=== PATIENT | male | born 1940 | race African-American/Black ===

== ENCOUNTER 2022-06-06 13:40 | Inpatient (IN) | payer MEDICARE, MEDICAID ==
[~2022-06-06] VITALS: Ht 167.6 cm; Wt 122.5 kg
[~2022-06-06 13:40] MED LIST: BLOOD THINNER; CHOLESTEROL MEDS; GABAPENTIN; HTN MEDS; PAIN MEDS
[2022-06-06] MEDS ORDERED: ONDANSETRON HCL 4MG/2ML INJ IV STA (14:33)
[2022-06-06] MEDS ORDERED: MORPHINE SULFATE 4 MG/ML CPJ (NOT FOR IM USE) IV STA (14:33)
[2022-06-06] MEDS ORDERED: SODIUM CHLORIDE 0.9% 1,000 ML IV ONE (14:45)
[2022-06-06 15:24] LABS: BASOPHILS % 0.2 % (0.0-2.0); EOSINOPHILS % 1.3 % (0.0-5.0); HEMATOCRIT. 38.3 % (42.0-52.0); HEMOGLOBIN. 12.6 g/dL (14.0-18.0); LYMPHOCYTES % 15.8 % (20.0-50.0); MEAN CORPUSCULAR HEMOGLOBIN 30.4 pg (28.0-32.0); MEAN CORPUSCULAR VOLUME 92.5 fL (80.0-94.0); MEAN PLATELET VOLUME 9.2 fl (7.4-10.4); MONOCYTES % 4.4 % (2.0-8.0); NEUTROPHILS % 78.3 % (40.0-76.0); PLATELET 199 x1000/uL (130-400); RED BLOOD CELL COUNT 4.14 mill/uL (4.7-6.1); RED CELL DISTRIBUTION WIDTH 15.9 % (11.6-14.6)
[2022-06-06 15:32] LABS: CHLORIDE 108 mEq/L (98-107)
[2022-06-06 15:34] LABS: PARTIAL THROMBOPLASTIN TIME 27.1 sec (23.4-31.0); PROTHROMBIN TIME 10.7 sec (9.6-11.0)
[2022-06-06] MEDS ORDERED: AMLODIPINE 10MG TABLET PO ONE (16:45)
[2022-06-06] MEDS ORDERED: FUROSEMIDE 40MG/4ML VIAL IV ONE (17:00)
[2022-06-06] MEDS ORDERED: CEFTRIAXONE 1 G PREMIX 50 ML IV ONE (17:00)
[2022-06-06] MEDS ORDERED: AZITHROMYCIN 500MG/250ML 250 ML IV ONE (17:00)
[2022-06-06 17:14] LABS: CLARITY URINE CLEAR (CLEAR); COLOR URINE YELLOW (YELLOW); KETONES URINE NEGATIVE (NEGATIVE); LEUKOCYTE ESTERASE URINE TRACE (NEGATIVE); NITRITE URINE POSITIVE (NEGATIVE); OCCULT BLOOD URINE NEGATIVE (NEGATIVE); PH URINE 6.5 (4.5-8.0); PROTEIN URINE 1+ (NEGATIVE); SPECIFIC GRAVITY URINE 1.014 (1.005-1.030); UROBILINOGEN URINE 0.2 E.U./dL (0.2-1.0)
[2022-06-06] MEDS ORDERED: DOCUSATE SODIUM 100MG CAPSULE PO PRN (20:15)
[2022-06-06] MEDS ORDERED: GUAIFENESIN 200MG/10ML SUGAR FREE UDC PO PRN (20:15)
[2022-06-06] MEDS ORDERED: MAGNESIUM/ALUMINUM HYDROXIDE/SIMETHICONE 30ML UDC PO PRN (20:15)
[2022-06-06] MEDS ORDERED: IPRATROPIUM/ALBUTEROL 0.5-3(2.5)MG/3ML NEB NEB PRN (20:15)
[2022-06-06] MEDS ORDERED: ACETAMINOPHEN 325MG TABLET PO PRN ×2 (20:15)
[2022-06-06] MEDS ORDERED: NITROGLYCERIN 0.4MG TABLET SL SL PRN (20:15)
[2022-06-06] MEDS ORDERED: ONDANSETRON HCL 4MG/2ML INJ IV PRN (20:15)
[2022-06-06] MEDS ORDERED: TRAMADOL 50MG TABLET PO PRN (20:15)
[2022-06-06] MEDS ORDERED: KETOROLAC 15MG/ML VIAL IV PRN (20:15)
[2022-06-06] MEDS ORDERED: LEVOFLOXACIN 500MG PREMIX 100 ML IV SCH (20:15)
[2022-06-06 20:30] VITALS: BP 168/84
[2022-06-06] MEDS ORDERED: NALOXONE HCL 0.4MG/ML VIAL IV PRN (20:45)
[2022-06-06] MEDS ORDERED: ZOLPIDEM TARTRATE 5MG TABLET PO PRN (21:00)
[2022-06-06] MEDS: FUROSEMIDE 40MG/4ML VIAL IVP SCH (22:27)
[2022-06-06] MEDS: ENOXAPARIN 40MG/0.4ML SYR SUBCUT SCH (22:28)
[2022-06-06 22:31] LABS: T4 FREE 1.42 ng/dL (0.76-1.46)
[2022-06-06] MEDS: ASCORBIC ACID 500 MG TABLET PO SCH (22:41)
[2022-06-06] MEDS: LISINOPRIL 20MG TABLET PO SCH (22:41)
[2022-06-06] MEDS: SPIRONOLACTONE 25MG TABLET PO SCH (22:41)
[2022-06-06 22:45] LABS: FOLIC ACID (FOLATE) SERUM 13.5 ng/mL (>5.38)
[2022-06-06] MEDS: MORPHINE SULFATE 2 MG/ML CPJ (NOT FOR IM USE) IV PRN (23:11)
[2022-06-07] VITALS: BP 108/70
[2022-06-07] MEDS ORDERED: HYDR-4009 PO (03:57)
[2022-06-07 04:00] VITALS: BP 137/54
[2022-06-07] MEDS ORDERED: *PATIENT'S OWN MEDICATION STORAGE XX SCH (05:00)
[2022-06-07 05:35] LABS: CHLORIDE 105 mEq/L (98-107)
[2022-06-07 05:43] LABS: PHOSPHORUS 2.2 mg/dL (2.5-4.9)
[2022-06-07] MEDS: MORPHINE SULFATE 2 MG/ML CPJ (NOT FOR IM USE) IV PRN (05:55)
[2022-06-07 06:03] LABS: HEMATOCRIT. 32.8 % (42.0-52.0); HEMOGLOBIN. 10.8 g/dL (14.0-18.0); MEAN CORPUSCULAR HEMOGLOBIN 30.1 pg (28.0-32.0); MEAN CORPUSCULAR VOLUME 91.8 fL (80.0-94.0); MEAN PLATELET VOLUME 9.5 fl (7.4-10.4); PLATELET 167 x1000/uL (130-400); RED BLOOD CELL COUNT 3.57 mill/uL (4.7-6.1); RED CELL DISTRIBUTION WIDTH 15.6 % (11.6-14.6)
[2022-06-07 08:00] VITALS: BP 136/79
[2022-06-07] MEDS: FERROUS SULFATE 300MG/5ML UDC PO SCH ×3 (09:48→17:55)
[2022-06-07] MEDS: SPIRONOLACTONE 25MG TABLET PO SCH ×2 (09:49→21:10)
[2022-06-07] MEDS: ZINC SULFATE 220 MG ( 50 ) CAPSULE PO SCH (09:49)
[2022-06-07] MEDS: CHOLECALCIFEROL (D3) 1000 UNIT TABLET PO SCH (09:49)
[2022-06-07] MEDS: ASCORBIC ACID 500 MG TABLET PO SCH ×2 (09:49→21:10)
[2022-06-07] MEDS: FUROSEMIDE 40MG/4ML VIAL IVP SCH ×2 (09:50→21:09)
[2022-06-07] MEDS: LISINOPRIL 20MG TABLET PO SCH ×2 (09:50→21:10)
[2022-06-07 11:47] LABS: PLATELET ESTIMATE NORMAL
[2022-06-07 12:00] VITALS: BP 130/70
[2022-06-07 16:00] VITALS: BP 135/66
[2022-06-07 20:00] VITALS: BP 153/85
[2022-06-07] MEDS: ENOXAPARIN 40MG/0.4ML SYR SUBCUT SCH (21:09)
[2022-06-08] VITALS: BP 157/83
[2022-06-08 04:00] VITALS: BP 140/108
[2022-06-08 05:37] LABS: BASOPHILS % 0.2 % (0.0-2.0); EOSINOPHILS % 2.2 % (0.0-5.0); HEMATOCRIT. 35.6 % (42.0-52.0); HEMOGLOBIN. 11.8 g/dL (14.0-18.0); LYMPHOCYTES % 10.3 % (20.0-50.0); MEAN CORPUSCULAR HEMOGLOBIN 30.5 pg (28.0-32.0); MEAN CORPUSCULAR VOLUME 92.3 fL (80.0-94.0); MEAN PLATELET VOLUME 9.1 fl (7.4-10.4); MONOCYTES % 6.2 % (2.0-8.0); NEUTROPHILS % 81.1 % (40.0-76.0); PLATELET 159 x1000/uL (130-400); RED BLOOD CELL COUNT 3.85 mill/uL (4.7-6.1)
[2022-06-08] MEDS ORDERED: POLYMYXIN B SULFATE 500000 UNITS/VIAL ONE (07:32)
[2022-06-08] MEDS ORDERED: BUPIVACAINE HCL 0.5% (5MG/ML) 50ML ONE (07:33)
[2022-06-08] MEDS ORDERED: VANCOMYCIN HCL 1 GM/VIAL ONE (07:33)
[2022-06-08] MEDS ORDERED: MORPHINE SULFATE/PF 1MG/ML 10ML AMP ONE (07:36)
[2022-06-08] MEDS ORDERED: ROPIVACAINE HCL 10MG/ML 20 ML VIAL EPI ONE (07:36)
[2022-06-08] MEDS ORDERED: KETOROLAC 30MG/ML VIAL ONE (07:36)
[2022-06-08] MEDS ORDERED: EPINEPHRINE 1:1000 1 MG/ML AMP ONE (07:37)
[2022-06-08] MEDS: FERROUS SULFATE 300MG/5ML UDC PO SCH ×3 (07:50→16:58)
[2022-06-08] MEDS ORDERED: TRANEXAMIC ACID 1,000 MG in SODIUM CHLORIDE 0.9% 100 ML IV NR ×2 (08:00→10:00)
[2022-06-08] MEDS ORDERED: SKIN ADHESIVE 0.7 GM EA TOP ONE (08:54)
[2022-06-08] MEDS ORDERED: HYDROMORPHONE HCL/PF 2MG/ML CPJ ONE (08:56)
[2022-06-08] MEDS ORDERED: DEXAMETHASONE 4MG/ML 1ML VIAL ONE (08:57)
[2022-06-08] MEDS ORDERED: CEFAZOLIN SODIUM 1000MG/VIAL ONE (08:57)
[2022-06-08] MEDS ORDERED: GLYCOPYRROLATE 0.2 MG/ML 2ML VIAL ONE (08:57)
[2022-06-08] MEDS: LISINOPRIL 20MG TABLET PO SCH ×2 (09:00→20:46)
[2022-06-08] MEDS: ZINC SULFATE 220 MG ( 50 ) CAPSULE PO SCH (09:00)
[2022-06-08] MEDS: CHOLECALCIFEROL (D3) 1000 UNIT TABLET PO SCH (09:00)
[2022-06-08] MEDS: ASCORBIC ACID 500 MG TABLET PO SCH ×2 (09:00→20:45)
[2022-06-08] MEDS: SPIRONOLACTONE 25MG TABLET PO SCH ×2 (09:00→20:46)
[2022-06-08] MEDS: FUROSEMIDE 40MG/4ML VIAL IVP SCH ×2 (09:00→20:45)
[2022-06-08] MEDS ORDERED: METOPROLOL TARTRATE 5MG/5ML VIAL IV PRN (10:00)
[2022-06-08] MEDS ORDERED: LEVOFLOXACIN 500MG PREMIX 100 ML IV SCH (11:00)
[2022-06-08 12:00] VITALS: BP 162/83
[2022-06-08 16:00] VITALS: BP 185/91
[2022-06-08] MEDS: CEFAZOLIN 2,000 MG in DEXT 5% WATER 100 ML IV SCH ×2 (16:59→22:06)
[2022-06-08] MEDS: CLONIDINE 0.1MG TABLET PO PRN (16:59)
[2022-06-08 20:00] VITALS: BP 139/76
[2022-06-08] MEDS: ENOXAPARIN 40MG/0.4ML SYR SUBCUT SCH (20:45)
[2022-06-09] VITALS: BP 146/81
[2022-06-09 04:00] VITALS: BP 131/67
[2022-06-09] MEDS: CEFAZOLIN 2,000 MG in DEXT 5% WATER 100 ML IV SCH ×3 (05:23→21:06)
[2022-06-09 08:00] VITALS: BP 140/71
[2022-06-09] MEDS: ZINC SULFATE 220 MG ( 50 ) CAPSULE PO SCH (09:37)
[2022-06-09] MEDS: FERROUS SULFATE 300MG/5ML UDC PO SCH ×3 (09:37→19:04)
[2022-06-09] MEDS: ASCORBIC ACID 500 MG TABLET PO SCH ×2 (09:37→21:00)
[2022-06-09] MEDS: SPIRONOLACTONE 25MG TABLET PO SCH ×2 (09:37→21:00)
[2022-06-09] MEDS: LISINOPRIL 20MG TABLET PO SCH ×2 (09:37→21:00)
[2022-06-09] MEDS: CHOLECALCIFEROL (D3) 1000 UNIT TABLET PO SCH (09:37)
[2022-06-09 12:00] VITALS: BP 144/70
[2022-06-09 16:00] VITALS: BP 158/72
[2022-06-09 20:00] VITALS: BP 154/87
[2022-06-09] MEDS: ENOXAPARIN 40MG/0.4ML SYR SUBCUT SCH (21:01)
[2022-06-10] VITALS (7 sets, daily range): BP systolic 142–179; BP diastolic 75–100
[2022-06-10] MEDS: MORPHINE SULFATE 2 MG/ML CPJ (NOT FOR IM USE) IV PRN ×2 (05:56→10:45)
[2022-06-10] MEDS: CEFAZOLIN 2,000 MG in DEXT 5% WATER 100 ML IV SCH (06:47)
[2022-06-10] MEDS: CHOLECALCIFEROL (D3) 1000 UNIT TABLET PO SCH (10:36)
[2022-06-10] MEDS: FERROUS SULFATE 300MG/5ML UDC PO SCH ×4 (10:36→17:24)
[2022-06-10] MEDS: ZINC SULFATE 220 MG ( 50 ) CAPSULE PO SCH (10:36)
[2022-06-10] MEDS: ASCORBIC ACID 500 MG TABLET PO SCH ×2 (10:37→20:47)
[2022-06-10] MEDS: LISINOPRIL 20MG TABLET PO SCH ×2 (10:43→20:47)
[2022-06-10] MEDS: SPIRONOLACTONE 25MG TABLET PO SCH ×2 (10:43→20:47)
[2022-06-10] MEDS ORDERED: LEVOFLOXACIN 500MG TABLET PO SCH (11:00)
[2022-06-10] MEDS ORDERED: HYDROCODONE/ACETAMINOPHEN 10/325MG TABLET PO PRN (11:00)
[2022-06-10] MEDS: CLONIDINE 0.1MG TABLET PO PRN (11:31)
[2022-06-10] MEDS: AMLODIPINE 10MG TABLET PO SCH (17:23)
[2022-06-10] MEDS: ENOXAPARIN 40MG/0.4ML SYR SUBCUT SCH (20:48)
[2022-06-11] VITALS: BP 145/77
[2022-06-11 04:00] VITALS: BP 136/61
[2022-06-11] MEDS: HYDROCODONE/ACETAMINOPHEN 10/325MG TABLET PO PRN ×2 (06:28→14:09)
[2022-06-11 08:00] VITALS: BP 136/84
[2022-06-11] MEDS: FERROUS SULFATE 300MG/5ML UDC PO SCH ×2 (08:29→14:05)
[2022-06-11] MEDS: AMLODIPINE 10MG TABLET PO SCH (08:30)
[2022-06-11] MEDS: ZINC SULFATE 220 MG ( 50 ) CAPSULE PO SCH (08:30)
[2022-06-11] MEDS: SPIRONOLACTONE 25MG TABLET PO SCH (08:30)
[2022-06-11] MEDS: ASCORBIC ACID 500 MG TABLET PO SCH (08:30)
[2022-06-11] MEDS: LISINOPRIL 20MG TABLET PO SCH (08:30)
[2022-06-11] MEDS: CHOLECALCIFEROL (D3) 1000 UNIT TABLET PO SCH (08:50)
[2022-06-11 12:00] VITALS: BP 131/84
[2022-06-11 16:00] VITALS: BP 131/86
[2022-06-11 16:18] VITALS: BP 131/86
== END 2022-06-11 16:50 | DRG 521 ==
LOC: ER 14:13 → 6WST 17:36 → ENRESERV 17:44 → SUPCPDRO 20:04 → UNDODISIN 06-09 18:24 → 6EST 06-09 22:40
PROVIDERS: ADMIT Internal Medicine; ATTEND Internal Medicine
PROC: 0SRR0JZ Replacement of Right Hip Joint, Femoral Surface with Synthetic Substitute, Open Approach (ICD-10-PCS; principal; 2022-06-08)
DX: S72.001A Fracture of unspecified part of neck of right femur, initial encounter for closed fracture (principal); J96.00 Acute respiratory failure, unspecified whether with hypoxia or hypercapnia; N17.0 Acute kidney failure with tubular necrosis; I16.1 Hypertensive emergency; I13.0 Hypertensive heart and chronic kidney disease with heart failure and stage 1 through stage 4 chronic kidney disease, or unspecified chronic kidney disease; D62 Acute posthemorrhagic anemia; I69.954 Hemiplegia and hemiparesis following unspecified cerebrovascular disease affecting left non-dominant side; N18.9 Chronic kidney disease, unspecified; D63.8 Anemia in other chronic diseases classified elsewhere; Z20.822 Contact with and (suspected) exposure to COVID-19; I25.119 Atherosclerotic heart disease of native coronary artery with unspecified angina pectoris; K21.9 Gastro-esophageal reflux disease without esophagitis; I50.9 Heart failure, unspecified; E11.22 Type 2 diabetes mellitus with diabetic chronic kidney disease; F03.90 Unspecified dementia, unspecified severity, without behavioral disturbance, psychotic disturbance, mood disturbance, and anxiety; E78.5 Hyperlipidemia, unspecified; Z79.82 Long term (current) use of aspirin; Z87.891 Personal history of nicotine dependence; Z79.899 Other long term (current) drug therapy; W01.0XXA Fall on same level from slipping, tripping and stumbling without subsequent striking against object, initial encounter; Y93.89 Activity, other specified; Y92.89 Other specified places as the place of occurrence of the external cause; Y99.8 Other external cause status
CPT/HCPCS: 36415; 71045; 73502; 73552; 80048; 80053; 80061; 81003; 82607; 82746; 83036; 83540; 83550; 83605; 83735; 83880; 84100; 84439; 84443; 84484; 85025; 86850; 86900; 86920; 87426; 88305; 88311; 93005; 93306; 93970; 97110; 97161; 97162; 97165; 97166; 97530; 97535; 99285; C1776; C9803; J0456; J0690; J0696; J1100; J1170; J1650; J1885; J1940; J1956; J2270; J2274; J2405; J2795; J3370; J3490; J7030; J7050; J7060

== ENCOUNTER 2022-06-11 17:00 | Inpatient (IN) | payer MEDICARE, MEDICAID ==
[~2022-06-11] VITALS: Ht 175.3 cm; Wt 63.0 kg
[~2022-06-11 17:00] MED LIST changes: +HYDR-4009 PO; -PAIN MEDS
[2022-06-11 17:45] VITALS: BP 165/89
[2022-06-11 18:03] VITALS: BP 165/89
[2022-06-11] MEDS ORDERED: ACETAMINOPHEN 325MG TABLET PO PRN (18:30)
[2022-06-11] MEDS ORDERED: ONDANSETRON HCL 4MG/2ML INJ IV PRN (18:30)
[2022-06-11] MEDS ORDERED: MAGNESIUM/ALUMINUM HYDROXIDE/SIMETHICONE 30ML UDC PO PRN (18:30)
[2022-06-11] MEDS ORDERED: NITROGLYCERIN 0.4MG TABLET SL SL PRN (18:30)
[2022-06-11] MEDS ORDERED: IPRATROPIUM/ALBUTEROL 0.5-3(2.5)MG/3ML NEB HHN PRN (18:30)
[2022-06-11] MEDS ORDERED: NALOXONE HCL 0.4 MG/ML 1ML VIAL IV PRN (18:30)
[2022-06-11] MEDS ORDERED: GUAIFENESIN 200MG/10ML SUGAR FREE UDC PO PRN (18:30)
[2022-06-11] MEDS ORDERED: CLONIDINE 0.1MG TABLET PO PRN (18:30)
[2022-06-11 20:00] VITALS: BP 134/79
[2022-06-11] MEDS ORDERED: ZOLPIDEM TARTRATE 5MG TABLET PO PRN (21:00)
[2022-06-11] MEDS: SPIRONOLACTONE 25MG TABLET PO SCH (21:45)
[2022-06-11] MEDS: ASCORBIC ACID 500 MG TABLET PO SCH (21:45)
[2022-06-11] MEDS: LISINOPRIL 20MG TABLET PO SCH (21:46)
[2022-06-11] MEDS: FUROSEMIDE 40MG/4ML VIAL IVP SCH (21:46)
[2022-06-11] MEDS: HYDROCODONE/ACETAMINOPHEN 10/325MG TABLET PO PRN (23:50)
[2022-06-12] VITALS: BP 137/69
[2022-06-12 04:00] VITALS: BP 142/51
[2022-06-12 06:42] LABS: BASOPHILS % 0.2 % (0.0-2.0); EOSINOPHILS % 1.8 % (0.0-5.0); HEMATOCRIT. 33.2 % (42.0-52.0); HEMOGLOBIN. 11.1 g/dL (14.0-18.0); LYMPHOCYTES % 14.8 % (20.0-50.0); MEAN CORPUSCULAR HEMOGLOBIN 30.8 pg (28.0-32.0); MEAN CORPUSCULAR VOLUME 91.6 fL (80.0-94.0); MEAN PLATELET VOLUME 9.1 fl (7.4-10.4); MONOCYTES % 13.5 % (2.0-8.0); NEUTROPHILS % 69.7 % (40.0-76.0); PLATELET 180 x1000/uL (130-400); RED BLOOD CELL COUNT 3.62 mill/uL (4.7-6.1); RED CELL DISTRIBUTION WIDTH 15.5 % (11.6-14.6)
[2022-06-12 06:59] LABS: CHLORIDE 100 mEq/L (98-107)
[2022-06-12 08:00] VITALS: BP 123/73
[2022-06-12] MEDS: SPIRONOLACTONE 25MG TABLET PO SCH ×2 (09:00→21:00)
[2022-06-12] MEDS: ENOXAPARIN 40MG/0.4ML SYR SUBCUT SCH (09:19)
[2022-06-12] MEDS: CHOLECALCIFEROL (D3) 1000 UNIT TABLET PO SCH (09:20)
[2022-06-12] MEDS: ZINC SULFATE 220 MG ( 50 ) CAPSULE PO SCH (09:20)
[2022-06-12] MEDS: FUROSEMIDE 40MG/4ML VIAL IVP SCH ×2 (09:20→20:58)
[2022-06-12] MEDS: ASCORBIC ACID 500 MG TABLET PO SCH ×2 (09:20→20:58)
[2022-06-12] MEDS: FERROUS SULFATE 300MG/5ML UDC PO SCH ×3 (09:21→17:12)
[2022-06-12] MEDS: AMLODIPINE 10MG TABLET PO SCH (09:23)
[2022-06-12] MEDS: LISINOPRIL 20MG TABLET PO SCH ×2 (09:45→20:59)
[2022-06-12] MEDS ORDERED: PANTOPRAZOLE 40MG DR TABLET PO SCH (10:30)
[2022-06-12] MEDS ORDERED: LEVOFLOXACIN 500MG TABLET PO SCH (11:00)
[2022-06-12] MEDS: HYDROCODONE/ACETAMINOPHEN 10/325MG TABLET PO PRN (13:46)
[2022-06-12 20:00] VITALS: BP 117/79
[2022-06-12] MEDS: FAMOTIDINE 20MG TABLET PO SCH (20:58)
[2022-06-13 03:25] VITALS: BP 106/57
[2022-06-13 06:13] LABS: BASOPHILS % 0.3 % (0.0-2.0); EOSINOPHILS % 3.1 % (0.0-5.0); HEMATOCRIT. 32.3 % (42.0-52.0); HEMOGLOBIN. 10.8 g/dL (14.0-18.0); LYMPHOCYTES % 17.7 % (20.0-50.0); MEAN CORPUSCULAR HEMOGLOBIN 30.8 pg (28.0-32.0); MEAN CORPUSCULAR VOLUME 92.2 fL (80.0-94.0); MEAN PLATELET VOLUME 8.5 fl (7.4-10.4); MONOCYTES % 11.7 % (2.0-8.0); NEUTROPHILS % 67.2 % (40.0-76.0); PLATELET 188 x1000/uL (130-400); RED BLOOD CELL COUNT 3.51 mill/uL (4.7-6.1); RED CELL DISTRIBUTION WIDTH 15.5 % (11.6-14.6)
[2022-06-13 07:45] VITALS: BP 119/70
[2022-06-13] MEDS: AMLODIPINE 10MG TABLET PO SCH (09:00)
[2022-06-13] MEDS: FERROUS SULFATE 300MG/5ML UDC PO SCH ×3 (09:01→17:09)
[2022-06-13] MEDS: ZINC SULFATE 220 MG ( 50 ) CAPSULE PO SCH (09:02)
[2022-06-13] MEDS: CHOLECALCIFEROL (D3) 1000 UNIT TABLET PO SCH (09:02)
[2022-06-13] MEDS: ASCORBIC ACID 500 MG TABLET PO SCH ×2 (09:03→20:49)
[2022-06-13] MEDS: LISINOPRIL 20MG TABLET PO SCH ×2 (09:03→20:49)
[2022-06-13] MEDS: ENOXAPARIN 40MG/0.4ML SYR SUBCUT SCH (09:08)
[2022-06-13] MEDS: TRAMADOL 50MG TABLET PO PRN (09:29)
[2022-06-13] MEDS: DOCUSATE SODIUM 100MG CAPSULE PO PRN (17:09)
[2022-06-13 20:00] VITALS: BP 106/52
[2022-06-13] MEDS: LACTULOSE 20G/30ML UDC PO SCH (20:49)
[2022-06-13] MEDS: FAMOTIDINE 20MG TABLET PO SCH (20:49)
[2022-06-14] MEDS: LACTULOSE 20G/30ML UDC PO SCH ×5 (00:19→15:47)
[2022-06-14] MEDS ORDERED: NA PHOS,M-B/NA PHOS,DI-BA ENEMA 118ML PR PRN (03:15)
[2022-06-14 07:13] LABS: BASOPHILS % 0.4 % (0.0-2.0); EOSINOPHILS % 3.8 % (0.0-5.0); HEMOGLOBIN. 11.1 g/dL (14.0-18.0); LYMPHOCYTES % 18.3 % (20.0-50.0); MEAN CORPUSCULAR HEMOGLOBIN 30.9 pg (28.0-32.0); MEAN CORPUSCULAR VOLUME 92.1 fL (80.0-94.0); MEAN PLATELET VOLUME 8.2 fl (7.4-10.4); MONOCYTES % 13.9 % (2.0-8.0); NEUTROPHILS % 63.6 % (40.0-76.0); PLATELET 232 x1000/uL (130-400); RED BLOOD CELL COUNT 3.58 mill/uL (4.7-6.1)
[2022-06-14 08:00] VITALS: BP 114/55
[2022-06-14] MEDS: FERROUS SULFATE 300MG/5ML UDC PO SCH ×3 (10:02→17:58)
[2022-06-14] MEDS: ASCORBIC ACID 500 MG TABLET PO SCH ×2 (10:03→21:18)
[2022-06-14] MEDS: AMLODIPINE 10MG TABLET PO SCH (10:03)
[2022-06-14] MEDS: ZINC SULFATE 220 MG ( 50 ) CAPSULE PO SCH (10:03)
[2022-06-14] MEDS: CHOLECALCIFEROL (D3) 1000 UNIT TABLET PO SCH (10:03)
[2022-06-14] MEDS: ENOXAPARIN 30MG/0.3ML SYR SUBCUT SCH (10:04)
[2022-06-14] MEDS: TRAMADOL 50MG TABLET PO PRN (16:00)
[2022-06-14 20:00] VITALS: BP 92/57
[2022-06-14] MEDS: FAMOTIDINE 20MG TABLET PO SCH (21:18)
[2022-06-15 06:47] LABS: BASOPHILS % 0.4 % (0.0-2.0); EOSINOPHILS % 2.9 % (0.0-5.0); HEMOGLOBIN. 11.2 g/dL (14.0-18.0); MEAN CORPUSCULAR HEMOGLOBIN 30.6 pg (28.0-32.0); MEAN CORPUSCULAR VOLUME 93.4 fL (80.0-94.0); MEAN PLATELET VOLUME 8.1 fl (7.4-10.4); MONOCYTES % 10.1 % (2.0-8.0); NEUTROPHILS % 65.6 % (40.0-76.0); PLATELET 261 x1000/uL (130-400); RED BLOOD CELL COUNT 3.64 mill/uL (4.7-6.1)
[2022-06-15 08:00] VITALS: BP 114/46
[2022-06-15] MEDS: ZINC SULFATE 220 MG ( 50 ) CAPSULE PO SCH (10:03)
[2022-06-15] MEDS: ASCORBIC ACID 500 MG TABLET PO SCH ×2 (10:03→21:08)
[2022-06-15] MEDS: CHOLECALCIFEROL (D3) 1000 UNIT TABLET PO SCH (10:03)
[2022-06-15] MEDS: AMLODIPINE 10MG TABLET PO SCH (10:04)
[2022-06-15] MEDS: FERROUS SULFATE 300MG/5ML UDC PO SCH ×3 (10:04→17:28)
[2022-06-15] MEDS: ENOXAPARIN 30MG/0.3ML SYR SUBCUT SCH (10:04)
[2022-06-15] MEDS ORDERED: ACETAMINOPHEN 325MG TABLET PO PRN (15:45)
[2022-06-15 20:00] VITALS: BP 110/55
[2022-06-15] MEDS: FAMOTIDINE 20MG TABLET PO SCH (21:08)
[2022-06-16 08:00] VITALS: BP 113/61
[2022-06-16] MEDS: CHOLECALCIFEROL (D3) 1000 UNIT TABLET PO SCH (09:06)
[2022-06-16] MEDS: ASCORBIC ACID 500 MG TABLET PO SCH ×2 (09:06→21:07)
[2022-06-16] MEDS: ENOXAPARIN 30MG/0.3ML SYR SUBCUT SCH (09:06)
[2022-06-16] MEDS: FERROUS SULFATE 300MG/5ML UDC PO SCH ×3 (09:06→17:24)
[2022-06-16] MEDS: AMLODIPINE 10MG TABLET PO SCH (09:07)
[2022-06-16] MEDS: ZINC SULFATE 220 MG ( 50 ) CAPSULE PO SCH (09:07)
[2022-06-16] MEDS: DOCUSATE SODIUM 100MG CAPSULE PO PRN (12:45)
[2022-06-16 20:00] VITALS: BP 119/63
[2022-06-16] MEDS: FAMOTIDINE 20MG TABLET PO SCH (21:07)
[2022-06-17 08:00] VITALS: BP 104/70
[2022-06-17] MEDS: AMLODIPINE 10MG TABLET PO SCH (09:00)
[2022-06-17] MEDS: FERROUS SULFATE 300MG/5ML UDC PO SCH ×3 (09:26→16:32)
[2022-06-17] MEDS: ASCORBIC ACID 500 MG TABLET PO SCH ×2 (09:27→21:32)
[2022-06-17] MEDS: CHOLECALCIFEROL (D3) 1000 UNIT TABLET PO SCH (09:27)
[2022-06-17] MEDS: ZINC SULFATE 220 MG ( 50 ) CAPSULE PO SCH (09:28)
[2022-06-17] MEDS: ENOXAPARIN 30MG/0.3ML SYR SUBCUT SCH (09:29)
[2022-06-17] MEDS ORDERED: NALOXONE HCL 0.4MG/ML VIAL IV PRN (14:00)
[2022-06-17 20:14] VITALS: BP 139/66
[2022-06-17] MEDS: FAMOTIDINE 20MG TABLET PO SCH (21:32)
[2022-06-17] MEDS: TRAMADOL 50MG TABLET PO PRN (21:33)
[2022-06-18 08:00] VITALS: BP 126/60
[2022-06-18] MEDS: ENOXAPARIN 30MG/0.3ML SYR SUBCUT SCH (09:29)
[2022-06-18] MEDS: FERROUS SULFATE 300MG/5ML UDC PO SCH ×3 (09:30→17:16)
[2022-06-18] MEDS: CHOLECALCIFEROL (D3) 1000 UNIT TABLET PO SCH (09:30)
[2022-06-18] MEDS: ZINC SULFATE 220 MG ( 50 ) CAPSULE PO SCH (09:31)
[2022-06-18] MEDS: AMLODIPINE 10MG TABLET PO SCH (09:31)
[2022-06-18] MEDS: ASCORBIC ACID 500 MG TABLET PO SCH ×2 (09:31→20:35)
[2022-06-18] MEDS: TRAMADOL 50MG TABLET PO PRN (10:58)
[2022-06-18] MEDS ORDERED: BARIUM SULFATE 176 GM SUSP.RECON ONE (11:10)
[2022-06-18 20:00] VITALS: BP 99/60
[2022-06-18] MEDS: FAMOTIDINE 20MG TABLET PO SCH (20:35)
[2022-06-19 06:57] LABS: BASOPHILS % 0.6 % (0.0-2.0); EOSINOPHILS % 3.9 % (0.0-5.0); HEMOGLOBIN. 10.6 g/dL (14.0-18.0); LYMPHOCYTES % 21.6 % (20.0-50.0); MEAN CORPUSCULAR HEMOGLOBIN 30.6 pg (28.0-32.0); MEAN CORPUSCULAR VOLUME 92.2 fL (80.0-94.0); MEAN PLATELET VOLUME 7.8 fl (7.4-10.4); MONOCYTES % 12.6 % (2.0-8.0); NEUTROPHILS % 61.3 % (40.0-76.0); PLATELET 342 x1000/uL (130-400); RED BLOOD CELL COUNT 3.47 mill/uL (4.7-6.1); RED CELL DISTRIBUTION WIDTH 15.5 % (11.6-14.6)
[2022-06-19 08:00] VITALS: BP 106/51
[2022-06-19] MEDS: AMLODIPINE 10MG TABLET PO SCH (09:00)
[2022-06-19] MEDS: ASCORBIC ACID 500 MG TABLET PO SCH ×2 (09:11→21:39)
[2022-06-19] MEDS: ZINC SULFATE 220 MG ( 50 ) CAPSULE PO SCH (09:11)
[2022-06-19] MEDS: FERROUS SULFATE 300MG/5ML UDC PO SCH ×3 (09:12→18:18)
[2022-06-19] MEDS: CHOLECALCIFEROL (D3) 1000 UNIT TABLET PO SCH (09:12)
[2022-06-19] MEDS: ENOXAPARIN 40MG/0.4ML SYR SUBCUT SCH (09:12)
[2022-06-19] MEDS: ASPIRIN 81MG TABLET PO SCH (09:12)
[2022-06-19] MEDS: TRAMADOL 50MG TABLET PO PRN (09:13)
[2022-06-19 20:00] VITALS: BP 99/60
[2022-06-19] MEDS: FAMOTIDINE 20MG TABLET PO SCH (21:39)
[2022-06-20 08:00] VITALS: BP 123/64
[2022-06-20] MEDS: ZINC SULFATE 220 MG ( 50 ) CAPSULE PO SCH (09:06)
[2022-06-20] MEDS: ASCORBIC ACID 500 MG TABLET PO SCH ×2 (09:06→21:00)
[2022-06-20] MEDS: ENOXAPARIN 40MG/0.4ML SYR SUBCUT SCH (09:06)
[2022-06-20] MEDS: FERROUS SULFATE 300MG/5ML UDC PO SCH ×3 (09:06→16:14)
[2022-06-20] MEDS: ASPIRIN 81MG TABLET PO SCH (09:06)
[2022-06-20] MEDS: AMLODIPINE 10MG TABLET PO SCH (09:06)
[2022-06-20] MEDS: CHOLECALCIFEROL (D3) 1000 UNIT TABLET PO SCH (09:07)
[2022-06-20] MEDS: TRAMADOL 50MG TABLET PO PRN (10:14)
[2022-06-20 20:05] VITALS: BP 136/71
[2022-06-20] MEDS: FAMOTIDINE 20MG TABLET PO SCH (21:00)
[2022-06-21 08:00] VITALS: BP 139/59
[2022-06-21] MEDS: ENOXAPARIN 40MG/0.4ML SYR SUBCUT SCH (08:45)
[2022-06-21] MEDS: FERROUS SULFATE 300MG/5ML UDC PO SCH ×2 (08:45→15:18)
[2022-06-21] MEDS: CHOLECALCIFEROL (D3) 1000 UNIT TABLET PO SCH (08:45)
[2022-06-21] MEDS: ASPIRIN 81MG TABLET PO SCH (08:45)
[2022-06-21] MEDS: ZINC SULFATE 220 MG ( 50 ) CAPSULE PO SCH (08:45)
[2022-06-21] MEDS: ASCORBIC ACID 500 MG TABLET PO SCH (08:46)
[2022-06-21] MEDS: AMLODIPINE 10MG TABLET PO SCH (08:59)
[2022-06-21 12:30] VITALS: BP 139/59
[2022-06-21] MEDS ORDERED: ASPI-1406 PO (13:05)
[2022-06-21] MEDS ORDERED: FAMO-135 PO (13:20)
[2022-06-21] MEDS ORDERED: ZINC220C2 PO (13:28)
[2022-06-21] MEDS ORDERED: FE300LUD PO (13:32)
[2022-06-21] MEDS ORDERED: AMLO10TA4 PO (13:35)
[2022-06-21] MEDS ORDERED: CHOL200059 PO (13:39)
[2022-06-21] MEDS ORDERED: ASCO500C18 PO (13:41)
== END 2022-06-21 16:15 | disposition home health service (06) | DRG 535 ==
PROVIDERS: ADMIT Psychiatry & Neurology Neurology; ATTEND Internal Medicine
DX: S72.001A Fracture of unspecified part of neck of right femur, initial encounter for closed fracture (principal); E43 Unspecified severe protein-calorie malnutrition; J96.00 Acute respiratory failure, unspecified whether with hypoxia or hypercapnia; D62 Acute posthemorrhagic anemia; F33.1 Major depressive disorder, recurrent, moderate; I13.0 Hypertensive heart and chronic kidney disease with heart failure and stage 1 through stage 4 chronic kidney disease, or unspecified chronic kidney disease; N17.9 Acute kidney failure, unspecified; I69.351 Hemiplegia and hemiparesis following cerebral infarction affecting right dominant side; I50.32 Chronic diastolic (congestive) heart failure; D63.8 Anemia in other chronic diseases classified elsewhere; E11.22 Type 2 diabetes mellitus with diabetic chronic kidney disease; F01.50 Vascular dementia, unspecified severity, without behavioral disturbance, psychotic disturbance, mood disturbance, and anxiety; F41.9 Anxiety disorder, unspecified; I25.10 Atherosclerotic heart disease of native coronary artery without angina pectoris; K21.9 Gastro-esophageal reflux disease without esophagitis; N18.9 Chronic kidney disease, unspecified; V48.4XXA Person boarding or alighting a car injured in noncollision transport accident, initial encounter; M13.0 Polyarthritis, unspecified
CPT/HCPCS: 36415; 71045; 74230; 80048; 80053; 83735; 85025; 92523; 92610; 92611; 93970; 97110; 97112; 97116; 97162; 97166; 97530; 97535; J1650; J1940

== ENCOUNTER 2024-04-17 19:57 | Emergency (ER) | payer MEDICARE, MEDICAID ==
[~2024-04-17] VITALS: Ht 170.2 cm; Wt 85.0 kg
[~2024-04-17 19:57] MED LIST changes: +AMLO10TA4 PO; +ASCO500C18 PO; +ASPI-1406 PO; -BLOOD THINNER; +CHOL200059 PO; -CHOLESTEROL MEDS; +FAMO-135 PO; +FE300LUD PO; -GABAPENTIN; -HTN MEDS; -HYDR-4009 PO; +ZINC220C2 PO
[2024-04-17 20:00] VITALS: TEMP 98.7; O2SAT 98
[2024-04-17] MEDS ORDERED: ACETAMINOPHEN 325MG TABLET PO ONE (20:30)
[2024-04-17] MEDS: HYDROCODONE/ACETAMINOPHEN 5/325MG TABLET PO ONE (21:30)
[2024-04-17] MEDS: KETOROLAC 30MG/ML VIAL IM ONE (21:30)
[2024-04-17] MEDS ORDERED: IBUP-2029 MT (22:41)
[2024-04-17] MEDS: CLONIDINE 0.1MG TABLET PO ONE (23:00)
[2024-04-17] MEDS: HYDRALAZINE HCL 25MG TABLET PO ONE (23:00)
[2024-04-18 00:52] VITALS: BP 160/87; PULSE 80; RESP 18
== END 2024-04-18 00:54 | disposition home or self-care (01) ==
LOC: ER 19:57
DX: S83.92XA Sprain of unspecified site of left knee, initial encounter (principal); M17.12 Unilateral primary osteoarthritis, left knee; I10 Essential (primary) hypertension; Z86.73 Personal history of transient ischemic attack (TIA), and cerebral infarction without residual deficits; Z79.899 Other long term (current) drug therapy; W18.39XA Other fall on same level, initial encounter; Y93.89 Activity, other specified; Y92.89 Other specified places as the place of occurrence of the external cause; Y99.8 Other external cause status
CPT/HCPCS: 99284; 73552; 73560; 96372; J1885